=== PATIENT | female | born 2000 | race Caucasian/White ===

== ENCOUNTER 2022-04-03 19:38 | Emergency (ER) | payer BC, SELFPAY ==
--- NOTE | 2022-04-03 19:42 | ED.EAR ---
HPI - Ear Problem General Chief complaint: Ear Stated complaint: Ear Pain Time Seen by Provider: 04/03/22 19:42 Source: patient and RN notes reviewed History of Present Illness HPI Narrative: Patient is a 22-year-old female who presents the urgent care with complaints of bilateral ringing in the ears and decreased hearing. Patient states that she was seen at a [facility] 1 week ago and they told her she was too far into her ear infection for treatment . Patient was not treated for bilateral ear infections at that time. Denies of any fevers. States that the decreased hearing and ringing started today. No other acute complaints. No acute distress noted. Patient aware of the plan of care. Some parts of this dictation were generated by voice recognition software and may contain typographical and/or grammatical inaccuracies. Related Data Home Medications Medication Instructions Recorded Confirmed No Home Medications 04/03/22 04/03/22 Allergies Allergy/AdvReac Type Severity Reaction Status Date / Time lamotrigine [From Lamictal] Allergy Hives Verified 04/03/22 19:58 Penicillins Allergy Hives Verified 04/03/22 19:58 Review of Systems Review of Systems: CONSTITUTIONAL: Denies fever, chills, or sweats. EYES: Denies visual changes, redness, or discharge. ENT: Denies rhinorrhea, congestion, sore throat. Reports of decreased bilateral hearing and ringing CARDIOVASCULAR: Denies chest pain, palpitations, or edema. RESPIRATORY: Denies cough or dyspnea. GASTROINTESTINAL: Denies abdominal pain, nausea, vomiting, or diarrhea. GENITOURINARY: Denies dysuria or hematuria. SKIN: Denies rash or itching. MUSCULOSKELETAL: Denies back pain, joint pain, or myalgia. NEUROLOGIC: Denies headache, numbness, or weakness. All other systems reviewed are negative, except as documented in HPI. PMFSH Comments At the time of my signature, I reviewed and agree with the nursing past medical, surgical, social, and family history. There is no relevant family history pertinent to the patient complaint. Exam Narrative: GENERAL: This is a well-nourished, well-developed patient, in no apparent distress. HEAD: normocephalic, atraumatic. EYES: PERRL. Sclera clear/white. Vision is grossly intact. EARS: External ears normal, auditory canals clear and without drainage, TMs normal without perforation. Hearing grossly intact. NOSE: External nose normal with no obvious nasal discharge, nares without redness, no rhinorrhea. THROAT: Mucous membranes moist, posterior pharynx clear. Mild postnasal drainage NECK: Neck supple CARDIOVASCULAR: Regular rate and rhythm without murmurs, gallops, or rubs. RESPIRATORY: Clear to auscultation. Breath sounds equal bilaterally. No wheezes, rales, or rhonchi. SKIN: warm, intact with no suspicious lesions or rash, good texture and turgor. NEURO: awake, alert, and oriented to person, place and time. There were no obvious focal neurologic abnormalities. EXTREMITIES: No clubbing, cyanosis, or edema. Course Course Level of Care: Express Care Visit Vital Signs Vital signs: Vital Signs Temperature 98.1 F 04/03/22 19:48 Pulse Rate 73 04/03/22 19:48 Respiratory Rate 20 04/03/22 19:48 Blood Pressure 114/71 04/03/22 19:48 Pulse Oximetry 100 04/03/22 19:48 Oxygen Delivery Room Air 04/03/22 19:48 Temperature 98.1 F 04/03/22 19:48 Pulse Rate 73 04/03/22 19:48 Respiratory Rate 20 04/03/22 19:48 Blood Pressure 114/71 04/03/22 19:48 Pulse Oximetry 100 04/03/22 19:48 Oxygen Delivery Room Air 04/03/22 19:48 Reviewed Medical Decision Making MDM Narrative Medical decision making narrative: Advised the patient to use a daily antihistamine such as Claritin or Zyrtec and may use Benadryl prior to bedtime. Use a humidifier at night and avoid sleeping with a fan or the windows open. Use a warm compress to the ears for discomfort as well as Tylenol/ibuprofen as needed. If you have a re
[2022-04-03 19:48] VITALS: BP 114/71; PULSE 73; RESP 20; TEMP 36.7; O2SAT 100
== END 2022-04-03 20:17 | disposition home or self-care (01) ==
PROVIDERS: Emergency Provider Nurse Practitioner Family
DX: H93.13 Tinnitus, bilateral (principal); Z86.16 Personal history of COVID-19
CPT/HCPCS: 99202; G0463